=== PATIENT | female | born 1965 | race Caucasian/White ===

== ENCOUNTER 2017-04-27 09:49 | Outpatient (CLI) | payer OTHER | END 2017-04-27 17:17 | disposition home or self-care (01) | LOC: EDBD 09:49 → SMA 09:49 | PROVIDERS: ATTEND Family Medicine | DX: Z12.31 Encounter for screening mammogram for malignant neoplasm of breast (principal) | CPT/HCPCS: 77067 ==

== ENCOUNTER 2018-12-03 13:12 | Outpatient (CLI) | payer OTHER | END 2018-12-03 21:13 | disposition home or self-care (01) | LOC: SMA 13:12 | PROVIDERS: ATTEND Family Medicine | DX: Z12.31 Encounter for screening mammogram for malignant neoplasm of breast (principal) | CPT/HCPCS: 77067 ==

== ENCOUNTER 2019-12-15 11:20 | Outpatient (CLI) | payer OTHER | END 2019-12-15 20:49 | disposition home or self-care (01) | LOC: SMA 11:20 | PROVIDERS: ATTEND Family Medicine | DX: Z12.31 Encounter for screening mammogram for malignant neoplasm of breast (principal) | CPT/HCPCS: 77067 ==